=== PATIENT | female | born 1980 | race Caucasian/White ===

== ENCOUNTER 2023-10-26 03:36 | Day surgery (SDC) | payer OTHER, SELFPAY ==
[2023-10-26] VITALS (9 sets, daily range): BP systolic 119–147; BP diastolic 81–99; PULSE 88–110; RESP 15–118; TEMP 36.2–37.1; O2SAT 95–100; BMI 28.0
--- NOTE | 2023-10-26 | APP_PTH ---
PATHOLOGY RESULTS PATIENT: JAE MUNGUIA LOC: [facility] [place] U[place][id number] AGE/SX: 43/F ROOM: RE10/26/[address]: Dr. Angelina Person MD : 1980 BED: DIS: 10/26/2023 SPEC #: [id number] RECD: 10/26/23 10:25 STATUS: GALLITO GONZALEZ #: [id number] BOLIVAR: 10/26/23 00:[address]: Angelina Person DEPT: SURGICAL PATHOLOGY RECD BY: Norman Levi ENTERED: 10/26/23 10:25 SP TYPE: APPENDIX Tissues: Appendix, NOS Procedures: Surgery Specimen Level III HEADER OPERATION: Laparoscopic appendectomy PRE-OP DIAGNOSIS: Acute appendicitis TISSUE SUBMITTED: Appendix MICROSCOPIC DIAGNOSIS Appendix, appendectomy: Acute appendicitis and periappendicitis. LILIANA:dot 10/27/2023 MICROSCOPIC DESCRIPTION Slides are reviewed. GROSS DESCRIPTION Received in fixative is one container labeled with the patient's name and designated appendix. The specimen consists of a L-shaped appendix measuring 8.0 cm in length and up to 1.2 cm in diameter. The attached periappendiceal adipose tissue measures up to 1.5 cm in width. The serosa is focally covered with soto, purulent exudate. No obvious perforation is identified. The lumen is filled with hemorrhagic, purulent material and contains fecal material. No fecalith is identified. Mold Injector sections are submitted in one cassette. / SJ:rg 10/26/2023 TC:2 CPT: 61123
--- NOTE | 2023-10-26 04:05 | CT_ITS ---
EXAM: CT ABDOMEN AND PELVIS WITH INTRAVENOUS CONTRAST CLINICAL INDICATION: abd pain TECHNIQUE: Helically acquired images were obtained of the abdomen and pelvis with intravenous contrast. This CT exam was performed using one or more of the following dose reduction techniques: automated exposure control, adjustment of the mA and/or kV according to patient size, and/or use of iterative reconstruction technique. CONTRAST: IV 100mL Isovue-370 RADIATION DOSE: CTDIvol = 12.54 mGy, DLP = 790.25 mGy-cm COMPARISON: No relevant prior studies available. FINDINGS: LOWER THORAX: Unremarkable. Lung bases are clear. No cardiomegaly. No significant pericardial effusion. ABDOMEN: LIVER: Unremarkable. Homogeneous. No focal mass. GALLBLADDER AND BILE DUCTS: Unremarkable. No calcified gallstones. No gallbladder distention or wall edema. No intra- or extrahepatic biliary ductal dilation. PANCREAS: Unremarkable. No focal cystic or solid mass. SPLEEN: Unremarkable. Normal size without focal cystic or solid mass. ADRENALS: Unremarkable. No nodules. KIDNEYS AND URETERS: Unremarkable. Normal renal size and position. No hydronephrosis. STOMACH AND BOWEL: Unremarkable. No stomach or bowel distention. No focal inflammatory change. PELVIS: APPENDIX: The appendix is dilated up to 1.4 cm with appendicoliths in the lumen and surrounding inflammatory changes. BLADDER: Unremarkable. REPRODUCTIVE: Prominent uterus with multiple fibroids, measuring up to 5.8 cm. There is a 2.6 cm left ovarian cyst. ABDOMEN and PELVIS: INTRAPERITONEAL SPACE: Unremarkable. No ascites or other fluid collection. No free air. BONES/JOINTS: Unremarkable. No suspicious lytic or blastic abnormality. SOFT TISSUES: Unremarkable. No discrete abdominal or pelvic wall hernia. VASCULATURE: Unremarkable. Abdominal aorta is non-dilated. LYMPH NODES: Unremarkable. No enlarged lymph nodes. CT/Abdomen/Pelvis W IV Cont ONLY IMPRESSION: 1. Acute appendicitis. 2. Prominent uterus with multiple fibroids, measuring up to 5.8 cm. Electronically Signed: Kevin Sarah MD at 5:16 EST ,
[2023-10-26] MEDS: Morphine 4 MG/ML Syringe IV (04:14)
[2023-10-26] MEDS: 0.9% Normal Saline (1000mL) 1,000 ML 999 ML IV (04:14)
[2023-10-26] MEDS: Ondansetron 4 MG/2 ML Vial IV (04:14)
[2023-10-26] MEDS: Piperacil/Tazobactam 3.375 GM in 0.9% Normal Saline (50mL MB+) 50 ML IV (04:14)
[2023-10-26 04:17] LABS: Absolute Lymphocyte Count 1.33 X10^3/uL (0.83-4.51); Absolute Neutrophil Count 15.5 X10^3/uL (2.0-7.7); Basophil# 0.03 X10^3/uL; Basophil% 0.2 % (0-1); Eosinophil# 0.02 X10^3/uL; Eosinophils% 0.1 % (0-5); Hematocrit 41.3 % (37-47); Hemoglobin 14.4 g/dL (12.0-15.0); Lymphocyte # 1.33 X10^3/ul (0.83-4.51); Lymphocyte % 7.3 % (19-41); Mean Corp Hgb Conc 34.9 g/dL (32-36); Mean Corpuscular Hgb 30.5 pg (27.0-32.0); Mean Corpuscular Volume 87.5 fL (81-99); Mean Platelet Vol. 9.1 fl (6.2-12.0); Monocyte# 1.25 X10^3/uL; Monocyte% 6.9 % (0-10); NRBC Flagged by Analyzer 0 % (0-5); Neutrophil # 15.47 X10^3/uL (2.7-7.7); Neutrophil % 85.2 % (47-70); Platelet Count 235 K/mm3 (150-450); RBC Distribution Width CV 11.9 % (11.6-14.6); RBC Distribution Width SD 38.4 fl (35.1-43.9); Red Blood Count 4.72 M/mm3 (4.2-5.4); White Blood Count 18.2 K/mm3 (4.4-11.0)
[2023-10-26 04:36] LABS: AST(SGOT) 22 U/L (15-37); Alanine Aminotransfer ALT/SGPT 44 U/L (13-56); Albumin, Serum 3.3 g/dL (3.2-5.0); Alkaline Phosphatase 112 U/L (45-117); Anion Gap 7 (5-15); BUN 9 mg/dL (7-18); BUN/Creat Ratio 14.3 RATIO (10-20); Bilirubin, Direct 0.12 mg/dL (0.00-0.30); Chloride 104 mmol/L (98-107); Creatinine, Serum 0.63 mg/dL (0.55-1.02); EST Glomerular Filtration Rate 109 mL/min (>60); Est Glom Filt Rate - Afr Amer 132 mL/min (>60); Estimated Creatinine Clearance 97.38 ml/min; Glucose 125 mg/dL (74-106); Lipase 16 U/L (13-75); Potassium 3.6 mmol/L (3.5-5.1); Protein, Total 7.3 g/dL (6.4-8.2); Sodium Level 137 mmol/L (136-145)
[2023-10-26 04:46] LABS: Bacteria 0 SEEN /hpf (None Seen); Color, Urine Yellow (Yellow); Glucose, Dipstick Normal (Normal); Ketone-Dipstick Negative (Negative); Leukocyte Esterase-Dipstick Negative /ul (Negative); Mucous, Urine 0 SEEN /hpf (<or=2+); Nitrite-Dipstick Negative (Negative); Occult Blood-Urine Negative /ul (Negative); Protein-Dipstick Negative (Negative); Red Blood Cells-Urine 0 SEEN /hpf (0-5); Squamous Epithelial Cells - UA 0 SEEN /hpf (5-10); Urine Bilirubin Dipstick Negative (Negative); Urine Clarity Clear (Clear); Urine Urobilinogen Normal (Normal); Urine pH 6.5 (5.0 - 8.0); White Blood Cells 0 SEEN /hpf (0-5)
[2023-10-26 04:46] LABS: Lactic Acid 1.7 mmol/L (0.4-1.9)
[2023-10-26 04:56] LABS: Internal QC Validated? YES +Cl - CLEAR BKGD; Pregnancy, Urine Negative Negative
[2023-10-26] MEDS: HYDROmorphone 0.5 MG/0.5 ML SYRINGE IV (05:20)
--- NOTE | 2023-10-26 05:26 | EKG12_ITS ---
Test Reason : ABD PAIN Blood Pressure : / mmHG Vent. Rate : 094 BPM Atrial Rate : 094 BPM P-R Int : 176 ms QRS Dur : 076 ms QT Int : 350 ms P-R-T Axes : 060 006 030 degrees QTc Int : 437 ms Normal sinus rhythm Normal ECG Confirmed by VEENA ROSARIO, TRENA ([id number]), movie editor JOSEPH EWING ([id number]) on 10/27/2023 9:57:46 AM Referred By: Angelina Person Confirmed By:TRENA CURIEL MD
--- NOTE | 2023-10-26 05:30 | RAD_ITS ---
EXAM: XR CHEST, 1 VIEW CLINICAL INDICATION: Preoperative clearance TECHNIQUE: Frontal view of the chest. COMPARISON: No relevant prior studies available. FINDINGS: LUNGS AND PLEURAL SPACES: Unremarkable. No consolidation or edema. No pneumothorax. No effusion. HEART: Unremarkable. Cardiac silhouette not enlarged. MEDIASTINUM: Central airways and mediastinal contour are unremarkable. BONES/JOINTS: Unremarkable. No acute fracture. SOFT TISSUES: Unremarkable. RAD/Chest 1 View (Portable) IMPRESSION: No radiographic evidence of acute cardiopulmonary disease. Electronically Signed: Kevin Sarah MD at 6:00 EST ,
--- NOTE | 2023-10-26 05:33 | EDS_ITS ---
HPI History of Present Illness Chief Complaint: Abd Pain Informant: patient and spouse/S.O. Narrative Narrative: Patient is a 43-year-old female with past medical history of hypertension. She states that she noticed some abdominal pain on Thursday morning when she awoke but it was mild and she did not think much of it. She states starting around noon on Thursday she had increased pain and it was more localized towards the upper abdomen. She states with this she had mild nausea without any vomiting diarrhea or dysuria. She states as time progressed the pain slowly worsened and then it migrated towards her right lower abdomen. Secondary to the worsening symptoms she comes in for evaluation [facility] Medical History Hypertension Home Medications losartan 50 mg tablet (Cozaar) 50 mg PO DAILY 10/26/23 [History Last Taken Unknown] progesterone micronized 100 mg capsule 100 mg PO BID 10/26/23 [History Last Taken Unknown] Allergy/AdvReac Type Severity Reaction Status Date / Time No Known Allergies Allergy Verified 10/26/23 03:37 Social History Smoking Status: Never smoker ROS ROS ED Constitutional Constitutional ED: Denies chills or fever(s) ENT ENT ED: Denies sore throat Cardiovascular Cardiovascular: Denies chest pain Respiratory/Chest Respiratory/Chest: Denies cough or dyspnea Gastrointestinal Gastrointestinal: Reports abdominal pain and nausea; Denies diarrhea or vomiting Genitourinary Genitourinary ED: Denies dysuria or hematuria Musculoskeletal Musculoskeletal: Denies back pain or myalgias Integumentary Denies rash Neurologic Neurologic: Denies headache(s) Hematologic/Lymphatic Hematologic/Lymphatic: Denies easy bleeding or easy bruising EXAM Physical Exam Const Vital Signs: 10/26/23 03:37 Temperature 97.2 F L Temperature Source Temporal Pulse Rate 88 Respiratory Rate 17 Blood Pressure 147/99 H Blood Pressure Mean 115 Pulse Ox 99 Oxygen Delivery Method Room Air Positive well nourished and well developed General Appearance ED: well developed HEENT HEENT Narrative: Normocephalic atraumatic Eyes PERRL and EOMs intact bilaterally General Eye ED: Negative for scleral icterus Neck supple Neck Narrative: No nuchal rigidity or meningeal signs Resp normal respiratory effort and clear to auscultation bilaterally Cardio regular rate and regular rhythm Rate: other Other Details: Heart is regular rate and rhythm without murmurs rubs or gallops Radial and carotid pulses are equal and symmetric GI non-distended GI Narrative: Abdomen is soft and nondistended with hypoactive bowel sounds. There is pain with palpation and voluntary guarding in the right lower quadrant. Positive heel strike psoas and obturator signs are noted. Auscultation: hypoactive bowel sounds Palpation: soft Back/Spine Back/Spine Narrative: Mild right CVA pain present Extremity normal to inspection Neuro oriented x3, CN's II-XII intact bilaterally and no sensory deficits noted Sensorium / Orientation: alert Motor Exam: strength 5/5 throughout Psych mental status grossly normal Skin no rashes or lesions noted General Skin Exam: Negative for jaundice MDM MDM MDM Narrative Medical decision making narrative: Patient presented to the ER mildly hypertensive but has a past medical history of this and otherwise with stable vitals. She reported generalized abdominal pain with nausea that worsened over time and then migrated to the right lower quadrant. She does have guarding on exam and therefore there is concern for appendicitis versus ovarian cyst versus ovarian torsion versus kidney stone versus UTI versus pyelonephritis versus potential ectopic . Secondary to this a basic workup was ordered and patient's white count is elevated 18.2 consistent with stress response or infection but otherwise no clinically significant findings. As there is high likelihood this was acute appendicitis patient was started on Zosyn and a CT scan was obtained. CT scan confirmed a dilated and inflamed/infected appendix which correlates with her exam. General surgery was then contacted and they do agree to accept the patient to the hospital for appendectomy later today. With need for preoperative clearance and EKG and chest x-ray were obtained History & Record Review Discussion w/independent historian: Patient and Significant other Lab Data Attestation: I reviewed the patient's lab results. Labs: Laboratory Results - last 24 hr 10/26/23 10/26/23 04:09 04:37 WBC 18.2 H RBC 4.72 Hgb 14.4 Hct 41.3 MCV 87.5 MCH 30.5 MCHC 34.9 RDW Std Deviation 38.4 RDW Coeff of Rubi 11.9 Plt Count 235 MPV 9.1 Immature Gran % (Auto) 0.300 Neut % (Auto) 85.2 H Lymph % (Auto) 7.3 L [place] % (Auto) 6.9 Eos % (Auto) 0.1 Baso % (Auto) 0.2 Absolute Neuts (auto) 15.5 H Absolute Lymphs (auto) 1.33 Nucleated RBC % 0 Sodium 137 Potassium 3.6 Chloride 104 Carbon Dioxide 26.0 Anion Gap 7 BUN 9 Creatinine 0.63 Estim Creat Clear Calc 97.38 Est GFR (MDRD) Af Amer 132 Est GFR (MDRD) Non-Af 109 BUN/Creatinine Ratio 14.3 Glucose 125 H Lactic Acid 1.7 Calcium 9.0 Total Bilirubin 0.40 Direct Bilirubin 0.12 AST 22 ALT 44 Alkaline Phosphatase 112 Total Protein 7.3 Albumin 3.3 Globulin 4.0 Lipase 16 Urine Color Yellow Urine Clarity Clear Urine pH 6.5 Ur Specific [place] 1.010 Urine Protein Negative Urine Glucose (UA) Normal Urine Ketones Negative Urine Occult Blood Negative Urine Nitrite Negative Urine Bilirubin Negative Urine Urobilinogen Normal Ur Leukocyte Esterase Negative Urine RBC 0 SEEN Urine WBC 0 SEEN Ur Squamous Epith Cells 0 SEEN Urine Bacteria 0 SEEN Urine Mucus 0 SEEN Urine Test Negative Radiography Diagnostic Testing: Clinical Impression(s) from Imaging Studies Abdomen/Pelvis CT 10/26/23 04:05 IMPRESSION: 1. Acute appendicitis. 2. Prominent uterus with multiple fibroids, measuring up to 5.8 cm. Electronically Signed: Kevin Sarah MD at 5:16 EST , Chest X-Ray 10/26/23 05:30 IMPRESSION: No radiographic evidence of acute cardiopulmonary disease. Electronically Signed: Kevin Sarah MD at 6:00 EST , Chest x-ray as interpreted by the emergency medicine physician reveals no acute infiltrate pneumothorax or pleural effusion Discharge Plan Dx/Rx/DC Orders Clinical Impression: Hypertension, Acute appendicitis Disposition Disposition: Acute Care [facility]
--- NOTE | 2023-10-26 06:22 | PCM.HP.STD ---
HPI - General General Date of Admission: 10/26/23 HPI Narrative JAE MUNGUIA, is a 43 F who presents to the ER due to right lower quadrant pain. Patient states pain started at 7 AM yesterday was very mild did get worse at noon yesterday. Patient last had some milk at 11 PM. Patient states her pain was 7?8/10 when she came in currently may be a 5/10. CT abdomen pelvis was consistent with acute appendicitis with appendicoliths. Patient's white blood count 18 given Zosyn IV in the ER. Patient had nausea denies any vomiting. [facility] Medical History Hypertension Home Medications losartan 50 mg tablet (Cozaar) 50 mg PO DAILY 10/26/23 [History Last Taken Unknown] progesterone micronized 100 mg capsule 100 mg PO BID 10/26/23 [History Last Taken Unknown] Allergy/AdvReac Type Severity Reaction Status Date / Time No Known Allergies Allergy Verified 10/26/23 03:37 Social History Smoking Status: Never smoker Vital Signs Vital Signs Vital Signs: 10/26/23 03:37 Temperature 97.2 F L Temperature Source Temporal Pulse Rate 88 Respiratory Rate 17 Blood Pressure 147/99 H Blood Pressure Mean 115 Pulse Ox 99 Oxygen Delivery Method Room Air Weight Weight: 163 lb 12.855 oz Body Mass Index (BMI) 28.0 Physical Exam Const alert, oriented x3 and no apparent distress HEENT normocephalic and head/scalp atraumatic Resp normal respiratory effort Cardio regular rate GI soft to palpation; Negative for non-distended Palpation: tender RLQ; Negative for guarding Extremity no clubbing, cyanosis or edema Neuro CN's II-XII intact bilaterally Psych mental status grossly normal Results Lab / Micro Data 10/26/23 04:09 10/26/23 04:09 Labs: Laboratory Results - last 24 hr 10/26/23 04:09: WBC 18.2 H, RBC 4.72, Hgb 14.4, Hct 41.3, MCV 87.5, MCH 30.5, MCHC 34.9, RDW Std Deviation 38.4, RDW Coeff of Rubi 11.9, Plt Count 235, MPV 9.1, Immature Gran % (Auto) 0.300, Neut % (Auto) 85.2 H, Lymph % (Auto) 7.3 L, Patrick % (Auto) 6.9, Eos % (Auto) 0.1, Baso % (Auto) 0.2, Absolute Neuts (auto) 15.5 H, Absolute Lymphs (auto) 1.33, Nucleated RBC % 0, Sodium 137, Potassium 3.6, Chloride 104, Carbon Dioxide 26.0, Anion Gap 7, BUN 9, Creatinine 0.63, Estim Creat Clear Calc 97.38, Est GFR (MDRD) Af Amer 132, Est GFR (MDRD) Non-Af 109, BUN/Creatinine Ratio 14.3, Glucose 125 H, Lactic Acid 1.7, Calcium 9.0, Total Bilirubin 0.40, Direct Bilirubin 0.12, AST 22, ALT 44, Alkaline Phosphatase 112, Total Protein 7.3, Albumin 3.3, Globulin 4.0, Lipase 16 10/26/23 04:37: Urine Color Yellow, Urine Clarity Clear, Urine pH 6.5, Ur Specific [place] 1.010, Urine Protein Negative, Urine Glucose (UA) Normal, Urine Ketones Negative, Urine Occult Blood Negative, Urine Nitrite Negative, Urine Bilirubin Negative, Urine Urobilinogen Normal, Ur Leukocyte Esterase Negative, Urine RBC 0 SEEN, Urine WBC 0 SEEN, Ur Squamous Epith Cells 0 SEEN, Urine Bacteria 0 SEEN, Urine Mucus 0 SEEN, Urine Test Negative Imagaing Radiology Impression Abdomen/Pelvis CT 10/26/23 04:05 IMPRESSION: 1. Acute appendicitis. 2. Prominent uterus with multiple fibroids, measuring up to 5.8 cm. Electronically Signed: Kevin Sarah MD at 5:16 EST Reading Location ID and State: Count includes the [facility] / [place] Tel , Service support , Chest X-Ray 10/26/23 05:30 IMPRESSION: No radiographic evidence of acute cardiopulmonary disease. Electronically Signed: Kevin Sarah MD at 6:00 EST , Assessment & Plan Assessment/Plan (1) Acute appendicitis: PLAN: Plan 1. Discussed procedure laparoscopic appendectomy, possible open along with the risk but not limited to bleeding, infection/abscess, injury to another organ (small bowel, colon, etc.), adhesion, hernia at incision sites, and anesthesia. Patient and her no further questions this time. Angelina Person M.D. Pager: [phone] [facility] [address] [place] [address], [address] [place] [address] Office: [phone]
--- OUTSIDE RECORDS SUMMARY | 2023-10-26 06:31 | XMS RPT_ITS | CCD ---
Author Name Unknown Address [address] [place] [address] Organization [facility] Care Team Providers Care [employer] Name Role Phone [facility] Attending Unavailable [facility] Primary Care Unavailable [facility] Admitting Unavailable Results Test Name Value Interpretation Reference Range Facil ity Encounters Encounter Date Encounter Type Care Provider Facility Start: 09-23-2023 End: 09-23-2023 [facility] Summary Purpose Family History No Family History Records FoundNo Family History Records Found Advance Directives No Advanced Directives Records FoundNo Advanced Directives Records Found Additional Source Comments INFORMATION SOURCE (unrecogn ized section and content) DATE CREATED AUTHOR AUTHOR'S ORGANIZ ATION 09/25/2023 [facility] FOR RECORDS PERTAINING TO PATIENTS WHO ARE OR HAVE BEEN ENROLLED IN A CHEMICAL DEPENDENCY/SUBSTANCEABUSE PROGRAM, SOME INFORMATION MAY BE OMITTED. This clinical summary was aggregated from multiple sources. Caution should be exercised in using it in the provision of clinical care. This summary normalizes information from multiple sources, and as a consequence, information in this document may materially change the coding, format and clinical context of patient data. In addition, data may be omitted in some cases. CLINICAL DECISIONS SHOULD BE BASED ON THE PRIMARY CLINICAL RECORDS. [employer] provides no warranty or guarantee of the accuracy or completeness of information in this document.
[2023-10-26] MEDS: Bupivacaine 0.5% PF 10 ML VIAL (08:19)
--- NOTE | 2023-10-26 08:26 | PCM.OPRPT ---
Report of Operation Date of Procedure: 10/26/23 Pre-Operative Diagnosis: Acute appendicitis Post-Operative Diagnosis: Same Surgery/Procedure Performed:: Laparoscopic appendectomy Surgeon: Angelina Person Type of Anesthesia: General/Supplemental Anesthesiologist: Ryan Hill Special Medications: Zosyn 3.375 g IV x 1 in the ER for acute appendicitis Specimen's removed: Appendix Estimated Blood Loss (mL): <10 cc Description of Procedure: Indications: 43-year-old female presented to the ER with new right lower quadrant pain starting yesterday at noon, continued to get worse. On workup she was found to have acute appendicitis on CT and a leukocytosis of 18. Patient was started on antibiotics in the ER for acute appendicitis-Zosyn 3.375 g IV x 1 Description of the procedure: The patient was placed on operating table in supine position. General anesthesia was induced. A timeout was completed verifying correct patient, procedure, position and special equipment prior to beginning procedure. Abdomen was prepped and draped in usual sterile fashion. Incision was made in the natural skin line above the umbilicus with a 15 blade scalpel. The fascia was elevated and incised. Entry into the peritoneum was confirmed visually and no bowel was noted in the vicinity of the incision. The Paul trocar was placed under direct vision. Abdomen insufflated with a pressure of 12-15 mmHg. Patient tolerated insertion well. The scope was inserted and the abdomen inspected. No injuries from initial trocar placement were noted. Minimal amount of fluid was seen in the right lower quadrant. An direct visualization 2 -5 mm trocars were placed one above the symphysis pubis and below the hairline and one in the left lower quadrant lateral to the rectus muscle. Care is taken to avoid injury to the bladder and inferior epigastric vessels. The table was placed in Trendelenburg position with the right side elevated. The appendix was grasped with atraumatic grasper and elevated. It was noted to be inflamed/seropurulent. A window was developed in the mesoappendix at the point between the base of the appendix and the cecum. An endoscopic 45 mm linear cutting stapler blue load was then used to divide and staple the base of the appendix. Enseal was used to divide the mesoappendix. The appendix was withdrawn into the Paul trocar after being placed endoscopically retrieval bag. Appendix was sent to pathology. The appendiceal stump was then irrigated and hemostasis was assured. Fluid was suctioned no other pathology was identified. Secondary trochars were removed under direct visualization. No bleeding was noted trocar sites. The laparoscope withdrawn and the umbilical trocar removed. The abdomen was allowed to collapse. Local anesthesia of 20 mL of 0.5% Marcaine was used at the incision sites. The umbilical trocar site was closed with the [id number] 0 Vicryl suture. The skin was closed using sutures of 4-0 Monocryl and Steri-Strips. The patient was extubated. The patient tolerated the procedure well and was taken to the postanesthesia care unit in satisfactory condition. Complications none
--- NOTE | 2023-10-26 08:28 | DCINST_ITS ---
Discharge Instructions Diet Discharge Diet: Light diet - advance as tolerated Activity Discharge Activity: May Not Drive (while taking narcotic pain medications.) May shower in (days): 1 Lifting Restrictions: no lifting >20 lbs x 2 wks, no strenuous exercise for 4 wks Dressing / Incision Call your doctor if your incision/area has: Continuous Slow Oozing, Sudden Increased Bleeding, Increased Pain/ Swelling, Increased Redness, Foul Smelling Discharge and Swelling at the incision site Call your doctor if you observe: Fever of 101 or Higher Remove Dressing in: 2 days Cleanse incision/area with: Soap & Water Additional Dressing/Incision Instructions:: Steri-Strips will fall off in 7 to 10 days, if they do not fall off okay to remove after 10 days. Follow Up Care Please Follow Up With: Angelina Person MD When: Call the office for a follow-up appointment 2 weeks; after 5 PM and on the weekends call [phone] with any concerns. Test Results: Test results from this visit will be discussed in further detail at your follow- up appointment, if applicable. Discharge Plan Admission Admit Date/Time: 10/26/23 06:29 Attending Provider: Angelina Person Primary Care Provider: Hallie Coates Discharge Orders/Prescriptions Prescriptions: New tramadol 50 mg tablet 50 mg PO Q6H PRN (Reason: pain) Qty: 14 0RF Continued losartan [Cozaar] 50 mg tablet 50 mg PO DAILY progesterone micronized 100 mg capsule 100 mg PO BID Referrals / Follow Up: Hallie Coates NP-C [Primary Care Provider] - Disposition Disposition (needs filled in before D/C Order can be placed): Home, Self Care
[2023-10-26] MEDS: Lactated Ringers 1,000 ML 15 ML IV (09:30)
--- OUTSIDE RECORDS SUMMARY | 2023-10-26 09:31 | XMS RPT_ITS | CCD ---
Author Name Unknown Address [address] [place] [address] Organization [facility] Care Team Providers Care Law [employer] Administrator Name Role Phone [facility] Attending Unavailable [facility] Primary Care Unavailable [facility] Admitting Unavailable Results Test Name Value Interpretation Reference Range Facil ity Encounters Encounter Date Encounter Type Care Provider Facility Start: 09-23-2023 End: 09-23-2023 [facility] Summary Purpose Family History No Family History Records FoundNo Family History Records Found Advance Directives No Advanced Directives Records FoundNo Advanced Directives Records Found Additional Source Comments INFORMATION SOURCE (unrecogn ized section and content) DATE CREATED AUTHOR AUTHOR'S ORGANIZ ATION 09/25/2023 [facility] FOR RECORDS PERTAINING TO PATIENTS WHO ARE [...] BE BASED ON THE PRIMARY CLINICAL RECORDS. [employer] provides no warranty or guarantee of the accuracy or completeness of information in this document.
== END 2023-10-26 11:43 | disposition home or self-care (01) ==
LOC: ED 06:29 → MS3 06:30 → SDC 09:11 → AC 09:26
PROVIDERS: Emergency Provider Emergency Medicine; PCP Nurse Practitioner Family; Referring Provider Surgery; Visit Provider Surgery
PROC: 0DTJ4ZZ Resection of Appendix, Percutaneous Endoscopic Approach (ICD-10-PCS; CPT 44970; principal; 2023-10-26 07:10)
DX: K35.80 Unspecified acute appendicitis (principal); I10 Essential (primary) hypertension; Z79.899 Other long term (current) drug therapy
CPT/HCPCS: 44970; 00840; 71045; 74177; 80048; 80076; 81001; 81025; 83605; 83690; 85025; 88304; 93005; 99284; J7030; J7120; Q9967; A4216; C1760; J2405

== ENCOUNTER → 2024-12-30 | Outpatient (CLI) | payer OTHER, SELFPAY ==
--- NOTE | 2024-12-30 16:15 | EMB_PTH ---
PATIENT: JAE MUNGUIA [facility] U#:[id number] AGE/SX: 44/F ROOM: RE12/30/[address]: Dr. Yesika Valle DO : 1980 BED: DIS: 12/30/2024 SPEC #: [id number] RECD: 01/02/25 09:28 STATUS: GALLITO REKiran #: [id number] BOLIVAR: 12/30/24 16:[address]: Yesika Valle DEPT: SURGICAL PATHOLOGY RECD BY: Aydin Saleh ENTERED: 01/02/25 09:28 SP TYPE: ENDOM BX/C DELFINO DR: Hallie Munguia, SOLE SEWER HAND-C Tissues: A - Endometrium, NOS Procedures: Surgery Specimen Level IV HEADER OPERATION: Endometrial biopsy PRE-OP DIAGNOSIS: Menometrorrhagia TISSUE SUBMITTED: A- Endometrial lining MICROSCOPIC DIAGNOSIS Endometrium, biopsy: * Inactive to weakly proliferative endometrium. MICROSCOPIC DESCRIPTION Slides are reviewed. GROSS DESCRIPTION A. Received in fixative is one container labeled with the patient's name and designated Endometrial lining. The specimen consists of multiple irregular fragments of hall-brown tissue that in aggregate measure 1 x 1 x 0.1 cm and submitted in total in one cassette. 01/02/2025 CPT:36546
[2025-01-05 14:09] LABS: HPV APTIMA, High Risk Negative (Negative)
== END | disposition home or self-care (01) ==
LOC: LABSPEC 16:53
PROVIDERS: PCP Nurse Practitioner Family; Referring Provider Obstetrics & Gynecology; Visit Provider Obstetrics & Gynecology
DX: N92.1 Excessive and frequent menstruation with irregular cycle (principal); Z12.4 Encounter for screening for malignant neoplasm of cervix
CPT/HCPCS: 87624; 88175; 88305; G0145

== ENCOUNTER 2025-02-14 17:11 | Observation (INO) | payer SELFPAY, OTHER ==
[2025-02-06 12:13] LABS: Hematocrit 46.8 % (37-47); Hemoglobin 15.8 g/dL (12.0-15.0); Mean Corp Hgb Conc 33.8 g/dL (32-36); Mean Corpuscular Hgb 31.2 pg (27.0-32.0); Mean Corpuscular Volume 92.5 fL (81-99); Mean Platelet Vol. 9.9 fl (6.2-12.0); Platelet Count 258 K/mm3 (150-450); RBC Distribution Width SD 47.7 fl (35.1-43.9); Red Blood Count 5.06 M/mm3 (4.2-5.4)
[2025-02-06 13:17] LABS: Magnesium 1.9 mg/dL (1.5-2.2)
[2025-02-14] VITALS (19 sets, daily range): BP systolic 113–150; BP diastolic 74–99; PULSE 86–118; RESP 14–18; TEMP 36.2–37.2; O2SAT 93–100; BMI 28.1; BMI 28.8
[2025-02-14 06:15] LABS: Internal QC Validated? YES +Cl - CLEAR BKGD
[2025-02-14 06:16] LABS: Pregnancy, Urine Negative Negative
[2025-02-14 06:21] LABS: Bedside Glucose 184 mg/dL (74-106)
[2025-02-14] MEDS: Scopolamine 1mg/72hr Patch 1 PATCH TD (06:21)
[2025-02-14] MEDS: Lactated Ringers 1,000 ML 40 ML IV (06:21)
[2025-02-14] MEDS: Phenazopyridine 95 MG Tablet 190 MG PO (06:21)
[2025-02-14] MEDS: Acetaminophen 500 MG Tablet 1000 MG PO (06:22)
[2025-02-14] MEDS: Gabapentin 600 MG Tablet PO (06:22)
[2025-02-14] MEDS: Celecoxib 200 MG Capsule 400 MG PO (06:22)
[2025-02-14] MEDS: Magnesium 2 GM for ERAS IV (06:27)
--- NOTE | 2025-02-14 06:57 | PCM.PRE.AN2 ---
ASA Classification* ASA Classification ASA Classification: 2 Assessment & Plan Anesthesia* Anesthesia Assessment Anesthesia Assessment: Discussed sedation and/or anesthesia options, risks, benefits, and alternatives with patient/parents/legal guardian/POA. Questions invited. The patient/parents/legal guardian/POA seems to understand and agrees to proceed with anesthesia plan. Reviewed the physical assessment, medical history, allergy history and patient home medications list prior to surgery/procedure/anesthetic and documented any changes. Performed airway and anesthesia risk assessments. Anesthesia Type Anesthesia Type: General History Source History Obtained from:: Patient and Chart Anesthesia Focused Assessment* Temperature: 98.0 F Pulse Rate: 104 Blood Pressure: 131/92 Respiratory Rate: 18 Pulse Ox: 98 Oxygen Delivery Method: Room Air Airway Assessment Mouth opens: >3 cm Mallampati Score: I Teeth Condition: Caps/Crowns (Patient has a couple crowns. They are tight.) Neck Range of motion (ROM): Full ROM Comment: Short thyro-mental distance Focused Labs Anesthesia Preop lab: CBC WBC 7.0 K/mm3 (4.4-11.0) 02/06/25 09:02/06/25 RBC 5.06 M/mm3 (4.2-5.4) 02/06/25 09:02/06/25 Hgb 15.8 g/dL (12.0-15.0) H 02/06/25 09:33 02/06/25 Hct 46.8 % (37-47) 02/06/25 09:33 02/06/25 Plt Count 258 K/mm3 (150-450) 02/06/25 09:33 02/06/25 CHEMISTRY Potassium 3.6 mmol/L (3.5-5.1) 10/26/23 04:09 10/26/23 Sodium 137 mmol/L (136-145) 10/26/23 04:09 10/26/23 Magnesium 1.9 mg/dL (1.5-2.2) 02/06/25 09:33 02/06/25 BUN 9 mg/dL (7-18) 10/26/23 04:09 10/26/23 Creatinine 0.63 mg/dL (0.55-1.02) 10/26/23 04:09 10/26/23 Glucose 125 mg/dL (74-106) H 10/26/23 04:09 10/26/23 POC Glucose 184 mg/dL (74-106) H 02/14/25 05:59 02/14/25 TSH 2.060 uIU/mL (0.300-4.200) 02/06/25 09:33 02/06/25 COAG Urine Test Negative Negative 02/14/25 06:03 02/14/25 Tst Clinic Negative 12/30/24 15:35 12/30/24 Pre-Assessment Diagnosis/Proposed Procedure Planned Operative Procedure(s): ROBOTIC TOTAL HYSTERECTOMY B/L SALPINGINECTOMY, CYSTOSCOPY Anesthesia History 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 When Was Last Pacemaker Check QUESTION #4 FULL TEXT: You/Your Family Experience fever (hyperthermia) with Anesthesia Last Oral Intake Last Oral intake: Last Oral Intake NPO since 04:45 02/14/25 05:56 Meds taken in AM with sips of Yes 02/14/25 05:56 water? 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 Female Yes 01/31/25 08:15 HX of Motion Sickness No 01/31/25 08:15 HX of N/V After Surgery No 01/31/25 08:15 Non-Smoker Yes 01/31/25 08:15 Duration of Surgery greater Yes 01/31/25 08:15 than 60 minutes Number of Risk Factors 3 01/31/25 08:15 PONV Score Moderate Risk 01/31/25 08:15 Height & Weight Height & Weight: Anesthesia: Height & Weight Height 5 ft 4 in 02/14/25 05:56 Weight: 74.389 kg 02/14/25 05:56 Body Mass Index (BMI) 28.1 02/14/25 05:56 Respiratory Assessment Respiratory Assessment - associate professor of engineering: Respiratory Tract Infection Hx - associate professor of engineering Hx Respiratory Tract Infection No 01/31/25 08:15 STOP Sleep Apnea STOP Sleep Apnea - associate professor of engineering: STOP Sleep Apnea - associate professor of engineering Hx Hypertension Yes 01/31/25 08:15 Hx Sleep Apnea No 01/31/25 08:15 CPAP BIPAP Do you snore loudly (louder No 01/31/25 08:15 than talking or can be heard Do you often feel tired/ No 01/31/25 08:15 fatigued/ sleepy during daytime? Has anyone observed you stop No 01/31/25 08:15 breathing during sleep? STOP Results Negative 01/31/25 08:15 QUESTION #5 FULL TEXT : Do you snore loudly (louder than talking or can be heard through closed doors)? 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 Specify any problems Hx of Preganancy in last 3 No 01/31/25 08:15 Months Nurse Filling Out Transfusion VLEHWESLEY 01/31/25 08:15 & Questions: Date: 01/31/25 01/31/25 08:15 Time: 08:23 01/31/25 08:15 Patient unable to answer at this time (ie. 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: /Reproductive Hx- associate professor of engineering Hx Now No 01/31/25 08:15 Gestational Age (in weeks): EDC: Hx Hx Para Hx Section SAB No 02/06/25 09:00 Active Medications Active Medications: Current Medications Generic Name Dose Route Start Last Admin Trade Name Trisha PRN Reason Stop Dose Admin Acetaminophen 1,000 mg 02/14/25 07:30 02/14/25 06:22 Acetaminophen 500 Mg Tablet PO 02/14/25 07:31 1,000 mg PREOP ONE Administration Celecoxib 400 mg 02/14/25 07:30 02/14/25 06:22 Celecoxib 200 Mg Capsule PO 02/14/25 07:31 400 mg PREOP ONE Administration Gabapentin 600 mg 02/14/25 07:30 02/14/25 06:22 Gabapentin 600 Mg Tablet PO 02/14/25 07:31 600 mg PREOP ONE Administration Lactated Ringer's 1,000 mls @ 40 mls/hr 02/14/25 07:30 02/14/25 06:21 IV 40 mls/hr .Q25H CHADWICK Administration Cefazolin Sodium 2 gm/ Sodium 110 mls @ 150 mls/hr 02/14/25 07:30 Chloride IV 02/14/25 08:13 INTRAOP ONE Lactated Ringer's 1,000 mls @ 70 mls/hr 02/14/25 07:30 IV .[id number] CHADWICK Magnesium Sulfate 2 gm/ 104 mls @ 208 mls/hr 02/14/25 07:30 02/14/25 06:27 Dextrose IV 02/14/25 07:59 208 mls/hr X1 ONE Administration Insulin Human Lispro 0 unit 02/14/25 07:30 Insulin Lispro 100 Unit/Ml Insuln.Pen SC 02/14/25 18:00 Q4H PRN PRN BG >/= 180, SEE PROTOCOL Protocol Ondansetron HCl 4 mg 02/14/25 07:30 Ondansetron 4 Mg/2 Ml Vial IV 02/14/25 07:31 INTRAOP ONE Phenazopyridine HCl 190 mg 02/14/25 07:30 02/14/25 06:21 Phenazopyridine 95 Mg Tablet PO 02/14/25 07:31 190 mg PREOP ONE Administration Scopolamine HBr 1 patch 02/14/25 07:30 02/14/25 06:21 Scopolamine 1mg/72hr Patch TD 02/14/25 07:31 1 patch PREOP ONE Administration PFSH Medical History Wears glasses Thyroid disease Arthritis Bladder disease Low iron Back pain Heartburn Hypertension Home Medications ?Medication ?Instructions ?Recorded ?Last Taken ?Type losartan 50 mg tablet (Cozaar) 50 mg PO DAILY 10/26/23 02/14/25 04:30 History iodine 150 mcg tablet 150 mcg PO DAILY 12/15/24 02/09/25 History lactobacillus combination no.4 3 3,000 mmu cells PO QDAY 12/15/24 02/09/25 History billion cell capsule (Probiotic) cholecalciferol (vitamin D3) 125 125 mcg PO DAILY 01/31/25 02/09/25 History mcg (5,000 unit) tablet (Vitamin D3) digestive enzymes (Digestive 2 cap PO DAILY 01/31/25 02/09/25 History Wellness capsule) levomefolate 7.5 mg-algal oil 1 cap PO DAILY 01/31/25 02/09/25 History 90.314 mg capsule (L-Methylfolate Forte) magnesium 200 mg tablet 200 mg PO DAILY 01/31/25 02/11/25 History nutritional supplements 1 ea .Route DAILY memory 01/31/25 02/09/25 History supplement tregnenololne turmeric 150 mg-herbal complex 1 cap PO BID PRN 01/31/25 02/09/25 History no.278 capsule vit C 226 mg-vit E 90 mg-copper 1 cap PO DAILY 01/31/25 02/09/25 History 0.8 mg-zinc oxide-lutein 5 mg capsule (PreserVision Lutein) ibuprofen 800 mg tablet 800 mg PO Q8H PRN pain #30 tabs 02/14/25 Unknown Rx oxycodone-acetaminophen 5 mg-325 1 tab PO Q4H PRN pain 7 days #20 02/14/25 Unknown Rx mg tablet (Percocet) tabs Allergy/AdvReac Type Severity Reaction Status Date / Time lisinopril AdvReac Mild cough Verified 02/14/25 05:51 Surgical History S/P dilation and curettage S/P appendectomy Social History Smoking Status: Never smoker alcohol intake: never substance use type: does not use additional social history: - Pb Review of Systems (Anesthesia) ROS Narrative System reviewed and no additional complaints, except as documented.
--- NOTE | 2025-02-14 07:00 | HP.PCM_ITS ---
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 Is patient in pain?: No Allergies lisinopril Adverse Reaction (Mild, Verified 02/06/25 08:58) cough Medications ?Medication ?Instructions ?Recorded ?Confirmed ?Type losartan 50 mg tablet (Cozaar) 50 mg PO DAILY 10/26/23 02/06/25 History iodine 150 mcg tablet 150 mcg PO DAILY 12/15/24 02/06/25 Histo ry lactobacillus combination no.4 3 3,000 mmu cells PO QDAY 12/15/24 5 History billion cell capsule (Probiotic) medroxyprogesterone 10 mg tablet 10 mg PO QDAY #30 tabs 12/15/24 02/06/25 Rx cholecalciferol (vitamin D3) 125 125 mcg PO DAILY 01/31/25 02/06/25 Histo ry mcg (5,000 unit) tablet (Vitamin D3) digestive enzymes (Digestive 2 cap PO DAILY 01/31/25 02/06/25 History Wellness capsule) levomefolate 7.5 mg-algal oil 1 cap PO DAILY 01/31/25 02/06/25 History 90.314 mg capsule (L-Methylfolate Forte) magnesium 200 mg tablet 200 mg PO DAILY 01/31/25 02/06/25 Histor y nutritional supplements .Route memory supplement 01/31/25 History tregnenololne turmeric 150 mg-herbal complex 1 cap PO BID PRN 01/31/25 02/06/25 Histo ry no.278 capsule vit C 226 mg-vit E 90 mg-copper 1 cap PO DAILY 01/31/25 02/06/25 History 0.8 mg-zinc oxide-lutein 5 mg capsule (PreserVision Lutein) Is last menstrual period known: Yes Last Menstrual Period: 01/28/25 Post menopausal: No Patient : No : No [facility] Medical History Wears glasses Thyroid disease Arthritis Bladder disease Low iron Back pain Heartburn Hypertension Surgical History S/P dilation and curettage S/P appendectomy Social History Smoking Status: Never smoker alcohol intake: never substance use type: does not use additional social history: - Pb HPI TRH BS cysto Details: JAE MUNGUIA is a 44 year old y/o (vaginal deliveries) who presents for consultation for enlarged fibroid uterus and heavy irregular bleeding. She has tried continuous progesterone from a prior provider (300 mg daiy) and this slowed the bleedign some. She bleeds usually 3 out of 4 weeks. Her TSH is very low at 0.1 and she states that a provider in [place] is giving her iodine. She is here today with her . Ultrasound at [place] showed a 13.3 x 9.3 x 8.1 cm uterus with multiple fibroids. Largest being on the posterior right side of the uterus measuring 5.9 x 7.2 x 7.9 cm. The endometrium is distorted and ill defined due to the fibroids. EMB was benign. Female Reproductive History Last Menstrual Period: 01/28/25 History 7 Elective abortions Hx Para 4 Spontaneous abortions 3 Hx # Term Pregnancies Ectopic pregnancies Hx # Pregnancies Multiple births # of living children ROS Const ROS Unobtainable: All systems reviewed & are unremarkable except as noted in H Resp Resp: Reports system reviewed and no additional complaints, except as documented; Denies cough GI GI: Reports as per HPI Psych Psych: Reports system reviewed and no additional complaints, except as docu mented Exam Const General: cooperative, healthy appearing, comfortable and no acute distress Resp Effort & Inspection: normal respiratory effort Skin General: no rashes or lesions noted Psych Appearance: grossly normal Speech and Movement: speech and movement normal Coding Level of Care Code Off vis,est,level 4 Diagnoses Menometrorrhagia N92.1 Fibroid uterus D25.9 Hyperthyroidism E05.90 Hypertension I10 Assessment and Plan Assessment and Plan (1) Menometrorrhagia: Status: Acute (2) Fibroid uterus: Status: Acute (3) Hyperthyroidism: Status: Acute (4) Hypertension: Status: Chronic Plan After discussing the patient's diagnosis and treatment plan options, patient wishes to proceed with surgical management. I have discussed with the patient the risks, benefits, and alternatives of the procedure which include but are not limited to risks of anesthesia, bleeding, infection, possible damage to bowel, bladder, or surrounding vasculature which could lead to additional surgery to evaluate any complications. Patient agrees to procedure and wishes to proceed. ACOG/uptodate references given for additional information regarding procedure. plan is for total robotic hysterectomy, BS, cysto
--- NOTE | 2025-02-14 07:01 | PCM.DC ---
Discharge Instructions Diet Discharge Diet: No restrictions DC O2, CPAP, BIPAP needs Home O2 Discharge instructions: No Dressing / Incision Discharge Activity: May Shower May resume sexual activity in: 8 weeks Weight Bearing Status: Full weight bearing Lifting Restrictions: 10 pounds for 2 weeks Dressing / Incision Call your doctor if your incision/area has: Continuous Slow Oozing, Sudden Increased Bleeding, Increased Pain/ Swelling, Increased Redness and Foul Smelling Discharge Call your doctor if you observe: Fever of 101 or Higher, Using more than 1 pad per hour, Shortness of breath, Chest pain and Uncontrolled pain Suture Line Care: Avoid Pulling/Pushing and Avoid Pinching/Bending Remove Dressing in: 1 week (if present) Cleanse incision/area with: Soap & Water and Keep Dressing Clean & Dry Follow Up Care Please Follow Up With: Yesika Valle DO When: Call to make an appointment with your doctor for a postop visit in 2 and 6 weeks Test Results: Test results from this visit will be discussed in further detail at your follow-up appointment, if applicable. Discharge Plan Admission Primary Reason for Your Visit: hysterectomy Attending Provider: Yesika Valle Primary Care Provider: Yolie Diaz Instructions Print Language: [place] Discharge Orders/Prescriptions Prescriptions: New ibuprofen 800 mg tablet 800 mg PO Q8H PRN (Reason: pain) Qty: 30 0RF oxycodone-acetaminophen [Percocet] 5-325 mg tablet 1 tab PO Q4H PRN (Reason: pain) 7 Days Qty: 20 0RF Continued iodine 150 mcg tablet 150 mcg PO DAILY Probiotic 3 billion cell capsule 3,000 mmu cells PO QDAY Rx Instructions: administer with a meal losartan [Cozaar] 50 mg tablet 50 mg PO DAILY cholecalciferol (vitamin D3) [Vitamin D3] 125 mcg (5,000 unit) tablet 125 mcg PO DAILY Digestive Wellness Capsule 2 cap PO DAILY Rx Instructions: administer with food; swallow whole; do not crush/chew/dissolve/break/cut PreserVision Lutein 226-90-0.8-5 mg capsule 1 cap PO DAILY nutritional supplements 1 ea .Route DAILY L-Methylfolate Forte 7.5-90.314 mg capsule 1 cap PO DAILY magnesium 200 mg tablet 200 mg PO DAILY Held turmeric-herbal complex no.278 150 mg capsule 1 cap PO BID PRN Hold Instructions: Resume on 02/28/25. Discontinued medroxyprogesterone 10 mg tablet 10 mg PO QDAY Qty: 30 3RF Referrals / Follow Up: Hallie Coates NP-C [Non-Staff] - Disposition Disposition (needs filled in before D/C Order can be placed): Home, Self Care
[2025-02-14] MEDS: Insulin Lispro 100 UNIT/ML INSULN.PEN SC (07:03)
[2025-02-14] MEDS: Cefazolin 2 GM in 0.9% Normal Saline (100mL Bag) 100 ML IV (07:32)
[2025-02-14] MEDS: Bupivacaine 0.25% 30 ML Vial (08:28)
[2025-02-14] MEDS: Ondansetron 4 MG/2 ML Vial IV (09:35)
--- NOTE | 2025-02-14 09:36 | OP.PCM_ITS ---
Problems Associated Problem List Diagnoses (1) Menometrorrhagia: (2) Fibroid uterus: (3) Hyperthyroidism: Multi Select Codes Urinary/Genital Urinary/Genital CPT Codes: 92893 TLH+BS/O >250gr uterus Operative Report (Standard) Operative Information Date of Procedure: 02/14/25 Pre-Operative Diagnosis: fibroid uterus, menorrhagia Post-Operative Diagnosis: fibroid uterus, menorrhagia Surgery/Procedure Performed: total robotic hysterectomy, bilateral salpingectomy, cystoscopy door framer: Yes Track Maintainer: Iron Gagnon Tasks completed by first press operator: Closing, Insert Trochanter and Retracting Additional [employer] assistant manager?: Yes Additional Cargo Trimmer #2: Glenda Guajardo Tasks completed by [employer] assistant manager #2: Closing, Insert Trochanter and Retracting Additional [employer] assistant manager?: No Type of Anesthesia: General RN Documented Start/Stop Times: Operation Date: 02/14/25 07:30 Case Time Into Pre-Op 02/14/25 05:31 Out of Pre-Op 02/14/25 07:24 Anesthesia Start 02/14/25 07:29 Into Room 02/14/25 07:29 Procedure Start 02/14/25 07:58 Procedure Start Time: 07:58 Procedure Stop Time: 09:46 Select all DRAINS/GRAFTS/IMPLANTS that apply: None Estimated Blood Loss: 50cc Specimen collected: Yes Description of specimen(s) removed: uterus, cervix, and bilateral fallopian tubes Description of surgery: Reason for surgery: This is a 44-year-old G7, P4 who presented to my office with history of heavy periods and an enlarged fibroid uterus. The planned procedure is for a robotic hysterectomy the risks benefits and alternatives were discussed with the patient the patient had a clear understanding of the procedure and a consent form was signed. Procedure: The patient was placed in the dorsal low lithotomy position and prepped and draped in the normal sterile fashion both abdominally and in the perineum. Her legs were placed in stirrups a Torres catheter was inserted into the urethra without difficulty. A weighted speculum was placed in the vagina and a single- tooth tenaculum was used to grasp the anterior lip of the cervix. An advincula uterine manipulator was inserted through the cervix without complication. It was then tied into place at the 2 and 10:00 locations on the cervix. Gloves were changed and attention was turned towards the abdomen. Approximately 22 cm above the pubic symphysis in the midline, and after Marcaine injection, a 8 mm incision was made. An 8 mm trocar was inserted through the laparoscope, then inserted into the abdomen under direct visualization using the laparoscope. Good abdominal placement was noted and no complications were appreciated. An air seal device was utilized to create pneumoperitoneum. At 12 cm lateral to the midline on the left and right sides 8 mm accessory ports were placed. Next a left upper quadrant 8 mm [employer] assistant manager port site was placed. The patient was placed in steep Trendelenburg position. The robot was docked. The hysterectomy was initiated first by taking down the round ligament on each side using the vessel sealer device. [The peritoneum between the round ligament and the IP ligament was opened using electrocautery and extended the length of the IP ligament. The IP ligament was then taken down using the vessel sealer device. These areas were freed without complication] the broad ligament was then and taken down using the vessel sealer device. Next the bladder flap was taken down without complication. This was done using monopolar cautery to the level of the cervical vaginal junction. After the bladder flap was created, uterine vessels were then isolated and cauterized using the vessel sealer device and EndoShears. At this point the uterine vessels were taken down further starting from the ascending branch, dissecting along the edges of the cervix to the level of the cervical vaginal junction with hemostasis appreciated. The cervical vaginal junction was then using monopolar cautery in a circumferential pattern across the superior aspect of the cervix. The specimen was delivered through the vagina via minimal morcellation and sent to pathology. The remaining vaginal cuff was then closed using a V lock suture. This was performed in a running technique. Excellent hemostasis was obtained with the help of hemoblast and usture and good closure was noted. Irrigation was then performed. All operative sites were noted to be hemostatic. A cystoscopy was performed with a 70 degree cystoscope through the urethra into the bladder without complication. The bladder was instilled with approximately 250 cc of normal saline. Intraoperative images were made. Ureteral orifices and jets were identified. No suture material was appreciated in the bladder. The bladder was then drained and cystoscope was removed. The abdominal cavity was again examined using the laparoscope after the robot was undocked. All operative sites were noted to be hemostatic. The trochars were removed under direct visualization without complication and pneumoperitoneum was reduced. At this point the skin was then closed using 4-0 Monocryl subcuticular stitch and sealed with surgical glue. The patient tolerated the procedure well sponge lap and needle counts were correct x2 the patient was taken to the recovery room in stable condition. Surgical Findings: 424 gram uterus, normal fallopian tubes and ovaries Complications Complications: No Admit VTE Documentation VTE Present on Admission: No VTE Mechan Device Prophylaxis: SCD's VTE Pharm Prophylaxis ordered?: No
--- NOTE | 2025-02-14 09:44 | UT_PTH ---
PATIENT: JAE MUNGUIA LOC: MS3 U#:[id number] AGE/SX: 44/F [place]OM[place] [facility] [place]14/[address]: Dr. Yesika Valle DO : 1980 BED: 1 DIS: 02/15/2025 SPEC #: [id number] RECD: 02/14/25 10:20 STATUS: GALLITO GONZALEZ #: [id number] BOLIVAR: 02/14/25 09:[address]: Yesika Valle DEPT: SURGICAL PATHOLOGY RECD BY: Aydin Saleh ENTERED: 02/14/25 10:20 SP TYPE: UTERUS OTHR DR: Yolie Diaz MD Tissues: A - Uterus, NOS Procedures: Surgery Specimen Level V HEADER OPERATION: ERAS, total laparoscopic robotic hysterectomy bilateral salpingectomy PRE-OP DIAGNOSIS: Menometrorrhagia, fibroid uterus, hyperthyroidism, hypertension TISSUE SUBMITTED: A- Uterus, bilateral fallopian tubes MICROSCOPIC DIAGNOSIS A. Uterus, bilateral fallopian tubes, hysterectomy and bilateral salpingectomy: * Cervix: no specific pathologic change. * Endometrium: proliferative phase. * Myometrium: largest leiomyoma with degenerative changes (7.0 cm), smaller leiomyomata - see Comment. * Bilateral fallopian tubes: no specific pathologic change. COMMENT Selected slides/images were reviewed in intradepartmental consultation by Dr Joceline Bergman ([facility] pathology division, [facility]). MICROSCOPIC DESCRIPTION Slides are reviewed. GROSS DESCRIPTION A. Received fresh in a container labeled with the patient's name, date of , and uterus, bilateral fallopian tubes is a morcellated hysterectomy specimen received in multiple pieces measuring 18.0 x 11.5 x 6.7 cm in aggregate and 409 g together. There is 1 attached and 1 detached fimbriated fallopian tube. No orientation is able to be determined. The serosa is hall-pink and previously disrupted. The ectocervix is white-pink and 3.5 x 3.3 cm with a 0.5 x 0.3 cm ovoid os. Sectioning reveals a previously disrupted, predominantly linear endometrial cavity measuring 5.5 cm in length by 1.7 cm in width. There is red-hall, smooth endometrium ranging from 0.1 to 0.2 cm in thickness. The hall-pink myometrium is trabecular with an average thickness of 4.0 cm. There are multiple intramural, subserosal, and submucosal myometrial nodules within the myometrium, and received separately ranging from 0.3 x 0.3 x 0.3 cm to 7.0 x 6.0 x 6.0 cm. The largest exhibits discolored yellow, softened, and focally hemorrhagic cut surfaces. The remaining nodules are white, whorled, with no hemorrhage or necrosis identified. The fimbriated fallopian tubes each measure 3.0 cm in length by 1 cm in diameter with hall-pink, smooth, and unremarkable serosa and fimbriated ends. Sectioning reveals a pinpoint lumen. Softball Umpire sections:A1. CervixA2-3. Endomyometrium (superficial with nodules)A4-5. Unremarkable myometrial nodulesA6-7. Largest myometrial nodule with hemorrhage and discolored fociA8-9. Bilateral fallopian tubes Per pathologist request on 02-27-2025, additional sections are submitted of the largest fibroid in A10-11. [facility] 02-14-2025 CPT:[id number]
--- NOTE | 2025-02-14 10:06 | PCM.POST.ANE ---
Anesthesia: Postop Eval I Current Vital Signs Temperature: 97.1 F Pulse Rate: 109 Blood Pressure: 123/89 Respiratory Rate: 16 Pulse Ox: 93 Oxygen Delivery Method: Room Air Assessment Airway patent: Yes Spontaneous unlabored respirations: Yes Mental status: Awake and Calm nausea: No Vomiting: No Anesthesia Complication: No Fluid Hydration Crystalloid volume administer (ml): 1,300 Total IV fluid infused: 1,300 Progress Note Anesthesia document: Postop Eval 1 completed: Yes
[2025-02-14 10:23] LABS: Bedside Glucose 122 mg/dL (74-106)
[2025-02-14 10:37] LABS: Bedside Glucose 109 mg/dL (74-106)
[2025-02-14] MEDS: Lactated Ringers @ 70 MLS/HR 70 ML IV (11:40)
[2025-02-14] MEDS: HYDROcodone Bitartrate/Apap 5/325 Tablet PO ×2 (12:05→20:48)
--- NOTE | 2025-02-14 16:57 | POSTOPAN2_ITS ---
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 Spontaneous unlabored Yes 02/14/25 10:06 HOTEL [email or web address].[email or web address] respirations Mental status Awake,Calm 02/14/25 10:06 HOTEL [email or web address].[email or web address] nausea No 02/14/25 10:06 HOTEL ASSOCIATE.[email or web address] Vomiting No 02/14/25 10:06 HOTEL [email or web address].[email or web address] Anesthesia Postop Eval I: Fluid Summary Crystalloid volume administer 1,300 02/14/25 10:06 HOTEL [email or web address].GDOTT (ml) Colloids volume administered ( ml) Blood Product volume administered (ml) Total IV fluid infused 1,300 02/14/25 10:06 HOTEL [email or web address].GDOTT Anesthesia Postop Eval I: Summary Notes Anesthesia Complication No 02/14/25 10:06 HOTEL [email or web address].[email or web address] Anesthesia Complication Comment: Post-operative progress note Anesthesia: Postop Eval II Evaluation Mental status: Awake and Calm Pain Level: 3 nausea: No Vomiting: No Complications Anesthesia Complication: No
--- NOTE | 2025-02-14 16:57 | PCM.POSTANE2 ---
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.GDOTT respirations Mental status Awake,Calm 02/14/25 10:06 STRETCHING PRESS OPERATOR.GDOTT nausea No 02/14/25 10:06 STRETCHING PRESS OPERATOR.GDOTT Vomiting No 02/14/25 10:06 STRETCHING PRESS OPERATOR.GDOTT Anesthesia Postop Eval I: Fluid Summary Crystalloid volume administer 1,300 02/14/25 10:06 STRETCHING PRESS OPERATOR.GDOTT (ml) Colloids volume administered ( ml) Blood Product volume administered (ml) Total IV fluid infused 1,300 02/14/25 10:06 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
[2025-02-14] MEDS: Ibuprofen 400 MG Tablet 800 MG PO (20:49)
[2025-02-15 02:56] VITALS: BP 122/69; PULSE 78; RESP 15; TEMP 36.6; O2SAT 97
[2025-02-15] MEDS: HYDROcodone Bitartrate/Apap 5/325 Tablet PO ×2 (03:20→09:48)
[2025-02-15 06:08] VITALS: BP 129/77; PULSE 78; RESP 16; TEMP 36.6; O2SAT 97
[2025-02-15] MEDS: Ibuprofen 400 MG Tablet 800 MG PO (07:17)
[2025-02-15 07:48] VITALS: BP 134/84; PULSE 79; RESP 16; TEMP 36.5; O2SAT 98
[2025-02-15 07:51] LABS: Hematocrit 39.4 % (37-47); Hemoglobin 13.4 g/dL (12.0-15.0); Mean Corpuscular Hgb 31.9 pg (27.0-32.0); Mean Corpuscular Volume 93.8 fL (81-99); Mean Platelet Vol. 9.5 fl (6.2-12.0); Platelet Count 247 K/mm3 (150-450); RBC Distribution Width CV 13.4 % (11.6-14.6); RBC Distribution Width SD 46.3 fl (35.1-43.9); White Blood Count 11.3 K/mm3 (4.4-11.0)
[2025-02-15 07:58] LABS: ALB/GLOB Ratio 1.3 RATIO (0.9-2.4); AST(SGOT) 22 U/L (<=31); Alanine Aminotransfer ALT/SGPT 20 U/L (<=34); Albumin, Serum 3.9 g/dL (3.5-5.0); Alkaline Phosphatase 88 U/L (35-104); Anion Gap 10 (5-15); BUN 11 mg/dL (4-19); BUN/Creat Ratio 13.7 RATIO (10-20); Calcium,Total 9.1 mg/dL (7.6-11.0); Chloride 102 mmol/L (98-108); Creatinine, Serum 0.77 mg/dL (0.70-1.20); EST Glomerular Filtration Rate 97 (>60); Estimated Creatinine Clearance 91.29 ml/min (50-250); Globulin 2.9 g/dL (2.2-4.2); Glucose 95 mg/dL (70-99); Potassium 4.1 mmol/L (3.3-5.1); Protein, Total 6.9 g/dL (5.9-8.4); Sodium Level 138 mmol/L (133-145); Total Bilirubin 0.35 mg/dL (0.00-1.30)
--- NOTE | 2025-02-15 07:58 | PCM.PN.OB ---
Subjective Subjective Patient is sitting in bed tearful about shoulder pain. Her catheter is out and she drank some tea but she has not yet voided. blood work from this am is still pending. We discussed gas pain. Objective Data Objective Data Vital Signs: Vital Signs Temp Pulse Resp BP Pulse Ox O2 Del Method O2 Flow Rate 97.7 F L 79 16 134/84 H 98 Room Air 4 02/15/25 07:48 02/15/25 07:48 02/15/25 07:48 02/15/25 07:48 02/15/25 07:48 02/15/25 07:50 02/14/25 11:41 FiO2 4 02/14/25 11:00 Oxygen Flow Rate (L/min) 4 Oxygen Delivery Method Room Air Weight: 168 lb 3.403 oz Body Mass Index (BMI) 28.8 Intake & Output: Intake and Output for Last 24 Hours 02/13/25 02/14/25 02/15/25 23:59 23:59 23:59 Intake Total 2104 / 2104 350 / 350 Output Total 2700 / 2700 1050 / 1050 Balance -596 / -596 -700 / -700 Lab / Micro Data 02/15/25 06:49 02/15/25 06:49 Labs: Laboratory Results - last 24 hr 02/14/25 08:54: POC Glucose 122 H 02/14/25 10:18: POC Glucose 109 H 02/15/25 06:49: WBC 11.3 H, RBC 4.20, Hgb 13.4, Hct 39.4, MCV 93.8, MCH 31.9, MCHC 34.0, RDW Std Deviation 46.3 H, RDW Coeff of Rubi 13.4, Plt Count 247, MPV 9.5, Sodium 138, Potassium 4.1, Chloride 102, Carbon Dioxide 26.0, Anion Gap 10, BUN 11, Creatinine 0.77, Estim Creat Clear Calc 91.29, Est GFR (MDRD) Non-Af 97, BUN/Creatinine Ratio 13.7, Glucose 95, Calcium 9.1, Total Bilirubin 0.35, AST 22, ALT 20, Alkaline Phosphatase 88, Total Protein 6.9, Albumin 3.9, Globulin 2.9, Albumin/Globulin Ratio 1.3 ROS Constitutional Constitutional: Denies chills, fatigue, fever(s), poor appetite or weakness Eyes Eyes: Denies blurry vision, change in vision, seeing flashes or spots in vision ENT HEENT: Denies dizziness, headache(s), loss taste/smell or sore throat Cardiovascular Cardiovascular: Denies chest pain, dizziness, dyspnea, irregular heart rhythm, palpitations or rapid heart rate Respiratory/Chest Respiratory/Chest: Denies chest tightness, cough, dyspnea or breast pain Gastrointestinal Gastrointestinal: Denies abdominal pain, constipation or vomiting Genitourinary Genitourinary: Denies dysuria or flank pain Musculoskeletal Musculoskeletal: Denies difficulty walking, joint pain, limited range of motion or numbness Neurologic Neurologic: Denies abnormal movements, abnormal speech, dizziness, numbness, seizure-like activity or syncope Psychiatric Psychiatric: Denies anxiety, behavioral changes, change in appetite, confusion, depression or suicidal thoughts Physical Exam Const alert, oriented x3 and no apparent distress General Appearance: cooperative and comfortable Resp normal respiratory effort Cardio regular rate Back/Spine no CVA tenderness and thoraco-lumbar ROM normal Extremity normal to inspection, no clubbing, cyanosis or edema, no calf tenderness and no pedal edema Psych mental status grossly normal, thought process normal, cooperative, affect normal, speech normal, activity/motor behavior normal, denies homicidal ideation and denies suicidal ideation Assessment & Plan (1) Status post hysterectomy: (2) Menometrorrhagia: (3) Fibroid uterus: (4) Hyperthyroidism: (5) Hypertension: PLAN: Plan blood work just came back and is normal encourage oob ambulation, po fluids when voids without >250 postvoid residual will dc to home if fails this may consult urology.
[2025-02-15] MEDS: SimETHICONE 80 MG Chewable Tablet PO (09:58)
--- NOTE | 2025-02-15 11:47 | PHA.DC.MC.R ---
Pharmacy [facility] Service has performed discharge medication reconciliation and counseling for this patient. 1. Ibuprofen 800mg PO Q8H PRN pain 2. Percocet 5/325mg 1T PO Q4H PRN pain 3. Hold turmeric The patient's discharge medication list was reviewed for discrepancies and discrepancies were resolved. The patient was counseled on the following discharge medications and changes in medications for homegoing were reviewed. The Reason for Use, instructions for use, and potential side effects were reviewed for all new medications. The patient's questions regarding all of their medications were answered. The patient was able to verbally demonstrate an understanding of their discharge medications. Patient counseled by pharmacy consultant, Kiko. Medications at Discharge Home Medications losartan 50 mg tablet (Cozaar) 50 mg PO DAILY 10/26/23 iodine 150 mcg tablet 150 mcg PO DAILY 12/15/24 lactobacillus combination no.4 3 billion cell capsule (Probiotic) 3,000 mmu cells PO QDAY 12/15/24 cholecalciferol (vitamin D3) 125 mcg (5,000 unit) tablet (Vitamin D3) 125 mcg PO DAILY 01/31/25 digestive enzymes (Digestive Wellness capsule) 2 cap PO DAILY 01/31/25 levomefolate 7.5 mg-algal oil 90.314 mg capsule (L-Methylfolate Forte) 1 cap PO DAILY 01/31/25 magnesium 200 mg tablet 200 mg PO DAILY 01/31/25 nutritional supplements 1 ea .Route DAILY memory supplement tregnenololne 01/31/25 turmeric 150 mg-herbal complex no.278 capsule 1 cap PO BID PRN 01/31/25 Held on 02/14/25. Instructions: Resume on 02/28/25. vit C 226 mg-vit E 90 mg-copper 0.8 mg-zinc oxide-lutein 5 mg capsule (PreserVision Lutein) 1 cap PO DAILY 01/31/25 ibuprofen 800 mg tablet 800 mg PO Q8H PRN pain #30 tabs 02/14/25 oxycodone-acetaminophen 5 mg-325 mg tablet (Percocet) 1 tab PO Q4H PRN pain 7 days #20 tabs 02/14/25
== END 2025-02-15 11:29 | disposition home or self-care (01) ==
LOC: SDC 17:37 → MS3 17:37
PROVIDERS: Admitting Provider Obstetrics & Gynecology; PCP Student in an Organized Health Care Education/Training Program; Referring Provider Obstetrics & Gynecology; Visit Provider Obstetrics & Gynecology
PROC: 0UT90ZZ Resection of Uterus, Open Approach (ICD-10-PCS; CPT 58573; principal; 2025-02-14 07:10)
DX: D25.9 Leiomyoma of uterus, unspecified (principal); N92.1 Excessive and frequent menstruation with irregular cycle; I10 Essential (primary) hypertension; E05.90 Thyrotoxicosis, unspecified without thyrotoxic crisis or storm; Z79.899 Other long term (current) drug therapy
CPT/HCPCS: 58573; S2900; 00840; 36415; 51702; 80053; 81025; 82962; 83735; 84443; 85027; 86850; 86900; 86901; 88307; 99221; G0378; J2405

== ENCOUNTER → 2025-07-05 | Outpatient (CLI) | payer SELFPAY, OTHER ==
--- NOTE | 2025-07-05 07:53 | EKG12_ITS ---
Test Reason : PREOP Blood Pressure : */* mmHG Vent. Rate : 91 BPM Atrial Rate : 91 BPM P-R Int : 160 ms QRS Dur : 74 ms QT Int : 338 ms P-R-T Axes : 44 31 42 degrees QTcB Int : 415 ms Normal sinus rhythm Normal ECG Confirmed by VEENA ROSARIO, TRENA ([id number]), editor trade journal JOSEPH EWING ([id number]) on 07/05/2025 1:52:15 PM Referred By: Tim Conner Confirmed By: TRENA CURIEL MD
--- NOTE | 2025-07-05 08:01 | CT_ITS ---
PROCEDURE: EXTREMITY LOWER WITHOUT CONTRA 07/05/2025 REASON FOR EXAM: VARUS DEFORMITY TECHNIQUE: Procedure Code: CTELWO Modality: CT Procedure: EXTREMITY LOWER WITHOUT CONTRA Coronal and Sagittal reconstruction series were provided. CONTRAST: None One or more dose reduction techniques were used (e.g., Automated exposure control, adjustment of the mA and/or kV according to patient size, use of iterative reconstruction technique). 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 Subcortical cyst formation and marginal osteophytes are noted. There is no acute fracture or dislocation identified no definite intra-articular loose bodies are identified. There is a small joint effusion. There is no soft tissue mass or cyst. There is no significant atherosclerosis. No adenopathy is identified. Joints: The hip and ankle joints appear intact. CT/Extremity Lower without Contra IMPRESSION: There is severe osteoarthritis in the medial compartment with moderate to sever e tricompartment osteoarthritis of the knee. Subcortical cyst formation and marginal osteophytes are noted. Reading Location: [place]
[2025-07-05 08:35] LABS: Hematocrit 45.7 % (37-47); Hemoglobin 16.0 g/dL (12.0-15.0); Immature Granulocytes Count 0.030 X10^3/uL (0.0-0.0); Mean Corp Hgb Conc 35.0 g/dL (32-36); Mean Corpuscular Volume 89.8 fL (81-99); Mean Platelet Vol. 8.9 fl (6.2-12.0); NRBC Flagged by Analyzer 0 % (0-5); Platelet Count 224 K/mm3 (150-450); RBC Distribution Width CV 12.5 % (11.6-14.6); RBC Distribution Width SD 40.9 fl (35.1-43.9); Red Blood Count 5.09 M/mm3 (4.2-5.4); White Blood Count 8.4 K/mm3 (4.4-11.0)
[2025-07-05 09:23] LABS: Albumin, Serum 4.2 g/dL (3.5-5.0); Anion Gap 9 (5-15); BUN 17 mg/dL (4-19); BUN/Creat Ratio 21.5 RATIO (10-20); Calcium,Total 9.5 mg/dL (7.6-11.0); Carbon Dioxide 23.7 mmol/L (21.0-32.0); Chloride 105 mmol/L (98-108); Glucose 90 mg/dL (70-99); Potassium 5.1 mmol/L (3.3-5.1)
== END | disposition home or self-care (01) ==
PROVIDERS: PCP Student in an Organized Health Care Education/Training Program; Referring Provider Specialist; Visit Provider Specialist
DX: M17.31 Unilateral post-traumatic osteoarthritis, right knee (principal); M21.161 Varus deformity, not elsewhere classified, right knee; S83.241D Other tear of medial meniscus, current injury, right knee, subsequent encounter; X58.XXXD Exposure to other specified factors, subsequent encounter
CPT/HCPCS: 36415; 73700; 80048; 82040; 85025; 93005